=== PATIENT | female | born 1980 | race Caucasian/White ===

== ENCOUNTER → 2019-10-18 | Outpatient (CLI) | payer MEDICARE ==
--- NOTE | 2019-10-18 20:24 | REPVR ---
PROCEDURE INFORMATION: Exam: MR Thoracic Spine Without and With Contrast Exam date and time: 10/18/2019 5:00 PM Age: 39 years old Clinical indication: Neurofibromatosis TECHNIQUE: Imaging protocol: Multiplanar magnetic resonance images of the thoracic spine without and with intravenous contrast. Contrast material: PROHANCE; Contrast volume: 20 ml; Contrast route: IV; COMPARISON: No relevant prior studies available. FINDINGS: Limitations: Motion artifact degrades the image quality of the axial T2, axial T1, and axial T1 postcontrast series. Vertebrae: The alignment of the thoracic spine is within normal limits. No fracture or subluxation is noted. The vertebral body heights are preserved. Marrow: No infiltrative marrow replacing process is noted. There is no evidence for discitis or osteomyelitis. Spinal epidural space: There is no abnormal epidural fluid collection. Spinal cord: Normal. No cord compression. T1-T2: The disc height is preserved. No disc herniation is noted. No spinal canal stenosis is noted. No neural foraminal stenosis is noted. The facet joints are unremarkable. T2-T3: The disc height is preserved. No disc herniation is noted. No spinal canal stenosis is noted. No neural foraminal stenosis is noted. The facet joints are unremarkable. T3-T4: The disc height is preserved. No disc herniation is noted. No spinal canal stenosis is noted. No neural foraminal stenosis is noted. The facet joints are unremarkable. T4-T5: The disc height is preserved. No disc herniation is noted. No spinal canal stenosis is noted. No neural foraminal stenosis is noted. The facet joints are unremarkable. T5-T6: The disc height is preserved. No disc herniation is noted. No spinal canal stenosis is noted. No neural foraminal stenosis is noted. The facet joints are unremarkable. T6-T7: The disc height is preserved. No disc herniation is noted. No spinal canal stenosis is noted. No neural foraminal stenosis is noted. The facet joints are unremarkable. There are endplate spurs projecting anteriorly. T7-T8: The disc height is preserved. There is disc desiccation. No disc herniation is noted. No spinal canal stenosis is noted. No neural foraminal stenosis is noted. The facet joints are unremarkable. There are endplate spurs projecting anteriorly. T8-T9: The disc height is preserved. There is disc desiccation. No disc herniation is noted. No spinal canal stenosis is noted. No neural foraminal stenosis is noted. The facet joints are unremarkable. There are endplate spurs projecting anteriorly. T9-T10: The disc height is preserved. There is disc desiccation. No disc herniation is noted. No spinal canal stenosis is noted. No neural foraminal stenosis is noted. The facet joints are unremarkable. There are endplate spurs projecting anteriorly. T10-T11: The disc height is preserved. No disc herniation is noted. No spinal canal stenosis is noted. No neural foraminal stenosis is noted. The facet joints are unremarkable. T11-T12: The disc height is preserved. No disc herniation is noted. No spinal canal stenosis is noted. No neural foraminal stenosis is noted. The facet joints are unremarkable. T12-L1: The disc height is preserved. No disc herniation is noted. No spinal canal stenosis is noted. No neural foraminal stenosis is noted. The facet joints are unremarkable. Soft tissues: Unremarkable. There is no evidence for a ligamentous sprain or muscular strain. No soft tissue fluid collection or mass is noted. IMPRESSION: 1. No disc herniation, spinal canal stenosis, neural foraminal stenosis, nerve root impingement, or spinal cord compression in the thoracic spine. 2. No neurofibromas appreciated in the thoracic spine. Electronically signed by: Morris Jang On 10/18/2019 20:25:30 PM
--- NOTE | 2019-10-18 20:25 | REPVR ---
PROCEDURE INFORMATION: Exam: MR Cervical Spine Without and With Contrast Exam date and time: 10/18/2019 5:00 PM Age: 39 years old Clinical indication: Condition or disease; Neurofibromatosis TECHNIQUE: Imaging protocol: Multiplanar magnetic resonance images of the cervical spine without and with intravenous contrast. Contrast material: PROHANCE; Contrast volume: 20 ml; Contrast route: IV; COMPARISON: No relevant prior studies available. FINDINGS: Vertebrae: There is a reversal of the normal cervical lordosis. No fracture or subluxation is noted. The vertebral body heights are preserved. Marrow: No infiltrative marrow replacing process is noted. There is no evidence for discitis or osteomyelitis. Spinal cord: There is focal increased T2 signal in the right side of the cervical spinal cord at the C3-C4 level, where there is a broad central protrusion that causes a mild impression on the ventral surface of the spinal cord. No abnormally increased T1 signal is noted in the spinal cord to suggest spinal cord hemorrhage. There is no abnormally enhancing lesion in the cervical spinal cord. Spinal epidural space: There is no abnormal epidural fluid collection. C2-C3: The disc height is preserved. There is disc desiccation. No disc herniation is noted. No spinal canal stenosis is noted. No neural foraminal stenosis is noted. The facet joints are unremarkable. C3-C4: The disc height is preserved. There is disc desiccation. There is a broad central protrusion that causes a mild impression on the ventral surface of the spinal cord. Mild to moderate spinal canal stenosis is present. No neural foraminal stenosis is noted. The facet joints are unremarkable. C4-C5: Moderate loss of disc height is present. There is disc desiccation. There is minimal endplate edema in the anterior aspect of the superior endplate of C5 and anterior aspect of the inferior endplate of C4. A left paracentral protrusion is present that abuts the left ventral surface of the spinal cord. There is fissuring of the posterior central portion of the annulus fibrosus. Endplate spurs are noted projecting anteriorly. Mild spinal canal stenosis is noted. No neural foraminal stenosis is noted. The facet joints are unremarkable. C5-C6: The disc height is preserved. There is disc desiccation. There is a broad-based posterior protrusion. There is fissuring of the posterior central portion of the annulus fibrosus. Endplate spurs are projecting anteriorly. No spinal canal stenosis is noted. No neural foraminal stenosis is noted. The facet joints are unremarkable. C6-C7: The disc height is preserved. There is disc desiccation. No disc herniation is noted. No spinal canal stenosis is noted. No neural foraminal stenosis is noted. The facet joints are unremarkable. C7-T1: The disc height is preserved. No disc herniation is noted. No spinal canal stenosis is noted. No neural foraminal stenosis is noted. The facet joints are unremarkable. Vertebral arteries: Expected flow voids in the vertebral arteries. Soft tissues: Unremarkable. There is no evidence for a ligamentous sprain or muscular strain. No soft tissue fluid collection is noted. IMPRESSION: 1. Focal increased T2 signal in the right side of the cervical spinal cord at the C3-C4 level that may represent gliosis or spinal cord edema, where there is a broad central protrusion that causes a mild impression on the ventral surface of the spinal cord. 2. C3-C4: Mild to moderate spinal canal stenosis secondary to a broad central protrusion that causes a mild impression on the ventral surface of the spinal cord. 3. C4-C5: Mild spinal canal stenosis, where there is a left paracentral protrusion that abuts the left ventral surface of the spinal cord and fissuring of the posterior central portion of the annulus fibrosus. 4. C5-C6: Fissuring of the posterior central portion of the annulus fibrosus and a broad-based posterior protrusion. 5. No neurofibromas appreciated in the cervical spine. Electronically signed by: Morris Jang On 10/18/2019 20:26:28 PM
--- NOTE | 2019-10-18 20:25 | REPVR ---
PROCEDURE INFORMATION: Exam: MR Head Without and With Contrast Exam date and time: 10/18/2019 5:00 PM Age: 39 years old Clinical indication: Condition or disease; Neurofibromatosis TECHNIQUE: Imaging protocol: MR of the head without and with intravenous contrast. Contrast material: PROHANCE; Contrast volume: 20 ml; Contrast route: IV; COMPARISON: No relevant prior studies available. FINDINGS: Limitations: Motion artifact degrades the image quality of the axial T1, axial T1 post-contrast, and repeat axial T1 post contrast series. Brain: There is no acute infarct, intracranial hemorrhage, abnormally enhancing lesion, mass, mass effect, or herniation. The cortical gyration pattern, basal ganglia, thalami, and cerebellum are normal in appearance. Brainstem: Normal. Midline shift: There is no midline shift. Ventricles: Normal. No ventriculomegaly. Bones/joints: Unremarkable. Soft tissues: Unremarkable. Sinuses: There is mild mucosal thickening in the ethmoid sinuses. Mastoid air cells: There is a small amount of fluid in the mastoid air cells, left greater than right. Orbits: The gaze is disconjugate. IMPRESSION: Normal MRI brain without and with contrast. No neurofibromas appreciated in the head. Electronically signed by: Morris Jang On 10/18/2019 20:26:53 PM
== END ==
LOC: M PLARAD 13:30
PROVIDERS: ATTEND Psychiatry & Neurology Neurology
DX: Q85.01 Neurofibromatosis, type 1 (principal); R20.2 Paresthesia of skin; M50.21 Other cervical disc displacement, high cervical region; M50.221 Other cervical disc displacement at C4-C5 level; M50.222 Other cervical disc displacement at C5-C6 level